=== PATIENT | female | born 1970 | race African-American/Black ===

== ENCOUNTER 2022-10-15 21:55 | Inpatient (IN) ==
[2022-10-15] MEDS ORDERED: ONDANSETRON 4 MG/2 ML VIAL IV STA (23:15)
[2022-10-15 23:21] LABS: Basophils % 0.1 % (0.0-0.8); Eosinophils # 0.4 10*3/uL (0.0-0.87); Eosinophils % 5.6 % (0.00-10.9); Hematocrit 19.4 VOL% (35.7-47.0); Immature Granulocytes % 0.7 %; Immature Granulocytes Absolute 0.05 #; Lymphocytes % 13.6 % (21.3-54.2); Mean Corpuscular HGB Conc 32.5 GM/DL (32-36); Mean Corpuscular Volume 87.8 FL (87-102); Mean Platelet Volume 10.3 FL (9.6-12.0); Monocytes # 0.8 10*3/uL (0.11-0.8); Monocytes % 10.7 % (1.7-12.7); Neutrophils % 69.3 % (38.7-73.9); Platelet Count 133 T/CUMM (130-400); Red Blood Count 2.21 MC/CUMM (3.8-5.5); Red Cell Distribution Width 14.6 % (9.3-17.3); White Blood Count 7.2 T/CUMM (4-12)
[2022-10-15 23:25] LABS: Hemoglobin 6.3 GM/DL (12.0-16.0)
[2022-10-15] MEDS ORDERED: SODIUM CHLORIDE 0.9% 1,000 ML IV PRN (23:26)
[2022-10-15 23:40] LABS: Alanine Aminotransferase 48 U/L (13-56); Albumin 3.1 G/DL (3.4-5.0); Alkaline Phosphatase 78 U/L (45-117); Aspartate Amino Transferase 37 U/L (0-37); Bilirubin,Total < 0.39 MG/DL (0.20-1.00); Blood Urea Nitrogen 139 MG/DL (7-18); Calcium 7.8 MG/DL (8.5-10.1); Carbon Dioxide 16 MMOL/L (21-32); Chloride 111 MMOL/L (98-107); Glucose 133 MG/DL (74-106); Osmolality,Calculated 325.4 MOS/KG (273-304); Potassium 5.7 MMOL/L (3.5-5.1); Sodium 140 MMOL/L (136-145); Total Protein 6.5 G/DL (6.4-8.2)
[2022-10-16 01:48] LABS: Arterial Base Excess iSTAT -9 MMOL/L (-2.5-2.5); Arterial Bicarbonate iSTAT 15.4 MMOL/L (20-26); Arterial O2 Saturation iSTAT 96 % (95-100); Arterial PCO2 iSTAT 27 MM HG (35-48); Arterial PO2 iSTAT 86 MM HG (80-95); Arterial Total CO2 iSTAT 16 MMO/L (23-27); Arterial pH iSTAT 7.365 (7.35-7.45)
[2022-10-16] MEDS ORDERED: ONDANSETRON 4 MG/2 ML VIAL IV PRN (02:15)
[2022-10-16] MEDS ORDERED: ACETAMINOPHEN 325 MG TABLET PO PRN (02:15)
[2022-10-16] MEDS ORDERED: hydrALAZINE 20 MG/1 ML VIAL IV PRN (02:15)
[2022-10-16] MEDS ORDERED: SODIUM POLYSTYRENE SULFATE 15 GM/60 ML BOTTLE PO STA (02:48)
[2022-10-16] MEDS ORDERED: SODIUM ZIRCONIUM CYCLOSILICATE 10 GM PACK PO ONE (02:55)
[2022-10-16] MEDS ORDERED: CLINDAMYCIN INJ 600 MG/50 ML PREMIX IV SCH (03:00)
[2022-10-16] MEDS ORDERED: INSULIN REGULAR 10 UNIT, CALCIUM GLUCONATE 1,000 MG in DEXTROSE 10% 250 ML IV ONE (03:30)
[2022-10-16] MEDS: CLINDAMYCIN INJ 900 MG/50 ML PREMIX IV SCH ×4 (03:39→21:33)
[2022-10-16 04:45] LABS: Basophils % 0.2 % (0.0-0.8); Eosinophils # 0.4 10*3/uL (0.0-0.87); Eosinophils % 4.8 % (0.00-10.9); Hematocrit 23.6 VOL% (35.7-47.0); Immature Granulocytes % 0.8 %; Immature Granulocytes Absolute 0.07 #; Lymphocytes # 1.1 10*3/uL (1.4-4.0); Lymphocytes % 12.4 % (21.3-54.2); Mean Corpuscular HGB Conc 33.9 GM/DL (32-36); Mean Corpuscular Volume 87.4 FL (87-102); Mean Platelet Volume 10.8 FL (9.6-12.0); Monocytes # 0.8 10*3/uL (0.11-0.8); Monocytes % 9.4 % (1.7-12.7); NRBC # 0.02 10*3/uL; Neutrophils % 72.4 % (38.7-73.9); Platelet Count 124 T/CUMM (130-400); Red Cell Distribution Width 14.8 % (9.3-17.3); White Blood Count 8.9 T/CUMM (4-12)
[2022-10-16 05:10] LABS: Albumin 3.1 G/DL (3.4-5.0); Bilirubin,Total 0.4 MG/DL (0.20-1.00); Calcium 8.1 MG/DL (8.5-10.1); Osmolality,Calculated 320.5 MOS/KG (273-304); Potassium 5.9 MMOL/L (3.5-5.1); Total Protein 6.7 G/DL (6.4-8.2)
[2022-10-16 05:21] LABS: Hypochromia Slight; Platelet Estimate Normal
[2022-10-16] MEDS ORDERED: DEXTROSE 50% 25 GM/50 ML SYRINGE IV ONE (06:23)
[2022-10-16] MEDS ORDERED: DEXTROSE 10% 250 ML IV ONE (06:25)
[2022-10-16 07:05] LABS: Alanine Aminotransferase 50 U/L (13-56); Albumin 3.2 G/DL (3.4-5.0); Alkaline Phosphatase 71 U/L (45-117); Aspartate Amino Transferase 40 U/L (0-37); Bilirubin,Total < 0.39 MG/DL (0.20-1.00); Blood Urea Nitrogen 129 MG/DL (7-18); Calcium 7.9 MG/DL (8.5-10.1); Carbon Dioxide 16 MMOL/L (21-32); Chloride 109 MMOL/L (98-107); Glucose 288 MG/DL (74-106); Osmolality,Calculated 331.4 MOS/KG (273-304); Potassium 4.8 MMOL/L (3.5-5.1); Sodium 140 MMOL/L (136-145); Total Protein 6.3 G/DL (6.4-8.2)
[2022-10-16 07:14] LABS: Bacteria,Urine Occasional /HPF (Few); Mucus,Urine Occasional /LPF (Occasional); Squamous Epithelial Cell,Urine Occasional /HPF (0-10)
[2022-10-16 07:19] LABS: Bilirubin,Urine Negative (Negative); Glucose,Urine (UA) 100 mg/dL (Negative); Ketones,Urine Negative (Negative); Nitrite,Urine Negative (Negative); Protein,Urine >=300 mg/dL (Negative); Urine Appearance Clear (Clear); Urine Color Yellow (Yellow); Urine pH 7.5 (4.5-8.0)
[2022-10-16 07:20] LABS: Blood, Urine Moderate mg/dL (Negative); Urine Urobilinogen 0.2 eU/dL (<2.0)
[2022-10-16 10:11] LABS: Hepatitis B Core IgM Quant 0.11 Index; Hepatitis B Surface Ag Quant < 0.10 Index; Hepatitis B Surface Ag Result Non-Reactive (NonReactive); Hepatitis C Virus Ab Quant < 0.02 Index; Hepatitis C Virus Ab Result Non-Reactive (NonReactive)
[2022-10-16] MEDS: CHOLECALCIFEROL 5,000 UNIT TABLET PO SCH (10:38)
[2022-10-16] MEDS: SODIUM BICARBONATE 650 MG TABLET PO SCH ×2 (10:38→21:34)
[2022-10-16] MEDS: ATORVASTATIN 20 MG TABLET PO SCH (10:39)
[2022-10-16] MEDS: amLODIPine 10 MG TABLET PO SCH (10:39)
[2022-10-16] MEDS: carvediloL 3.125 MG TABLET PO SCH ×2 (10:39→21:34)
[2022-10-16] MEDS: PANTOPRAZOLE 40 MG VIAL IV SCH (10:41)
[2022-10-16 11:58] LABS: % Iron Saturation 67.4 % (18-50); Ferritin 77.1 ng/mL (8-252)
[2022-10-16 12:56] LABS: Hematocrit 24.7 VOL% (35.7-47.0); Hemoglobin 8.3 GM/DL (12.0-16.0)
[2022-10-16] MEDS: DEXTROSE 10% 1,000 ML IV SCH (13:30)
[2022-10-16] MEDS: SODIUM ZIRCONIUM CYCLOSILICATE 10 GM PACK PO SCH ×2 (16:10→21:34)
[2022-10-16 18:23] LABS: Hematocrit 22.7 VOL% (35.7-47.0); Hemoglobin 7.7 GM/DL (12.0-16.0)
[2022-10-17 00:48] LABS: Hematocrit 23.3 VOL% (35.7-47.0); Hemoglobin 8.1 GM/DL (12.0-16.0)
[2022-10-17] MEDS: DEXTROSE 10% 1,000 ML IV SCH ×2 (04:40→22:56)
[2022-10-17] MEDS: CLINDAMYCIN INJ 900 MG/50 ML PREMIX IV SCH ×4 (05:31→22:30)
[2022-10-17 05:52] LABS: Basophils % 0.2 % (0.0-0.8); Eosinophils # 0.4 10*3/uL (0.0-0.87); Eosinophils % 4.3 % (0.00-10.9); Hematocrit 21.8 VOL% (35.7-47.0); Hemoglobin 7.4 GM/DL (12.0-16.0); Immature Granulocytes % 0.9 %; Immature Granulocytes Absolute 0.08 #; Lymphocytes % 10.4 % (21.3-54.2); Mean Corpuscular HGB Conc 33.9 GM/DL (32-36); Mean Corpuscular Volume 86.5 FL (87-102); Mean Platelet Volume 10.1 FL (9.6-12.0); Monocytes # 0.9 10*3/uL (0.11-0.8); Monocytes % 9.9 % (1.7-12.7); Neutrophils % 74.3 % (38.7-73.9); Platelet Count 118 T/CUMM (130-400); Red Blood Count 2.52 MC/CUMM (3.8-5.5); Red Cell Distribution Width 14.6 % (9.3-17.3); White Blood Count 9.1 T/CUMM (4-12)
[2022-10-17 06:18] LABS: Alanine Aminotransferase 50 U/L (13-56); Albumin 3.1 G/DL (3.4-5.0); Alkaline Phosphatase 69 U/L (45-117); Aspartate Amino Transferase 32 U/L (0-37); Bilirubin,Total < 0.39 MG/DL (0.20-1.00); Blood Urea Nitrogen 135 MG/DL (7-18); Calcium 7.6 MG/DL (8.5-10.1); Carbon Dioxide 15 MMOL/L (21-32); Chloride 108 MMOL/L (98-107); Glucose 82 MG/DL (74-106); Osmolality,Calculated 317.7 MOS/KG (273-304); Sodium 138 MMOL/L (136-145); Total Protein 6.5 G/DL (6.4-8.2)
[2022-10-17 06:21] LABS: Potassium 6.1 MMOL/L (3.5-5.1)
[2022-10-17] MEDS ORDERED: INSULIN REGULAR 10 UNIT, CALCIUM GLUCONATE 1,000 MG in DEXTROSE 10% 250 ML IV ONE (06:24)
[2022-10-17 06:59] LABS: Hematocrit 22.1 VOL% (35.7-47.0); Hemoglobin 7.4 GM/DL (12.0-16.0)
[2022-10-17] MEDS ORDERED: SODIUM BICARBONATE 50 MEQ/50 ML VIAL IV ONE (08:51)
[2022-10-17] MEDS ORDERED: SODIUM POLYSTYRENE SULFATE 15 GM/60 ML BOTTLE PO ONE (08:51)
[2022-10-17] MEDS ORDERED: SODIUM BICARB IV ONE (09:00)
[2022-10-17] MEDS: CHOLECALCIFEROL 5,000 UNIT TABLET PO SCH (09:30)
[2022-10-17] MEDS: ASPIRIN EC 81 MG TABLET PO SCH (09:30)
[2022-10-17] MEDS: ATORVASTATIN 20 MG TABLET PO SCH (09:30)
[2022-10-17] MEDS: amLODIPine 10 MG TABLET PO SCH (09:48)
[2022-10-17] MEDS: SODIUM BICARBONATE 650 MG TABLET PO SCH ×2 (09:48→20:20)
[2022-10-17] MEDS: carvediloL 3.125 MG TABLET PO SCH ×2 (09:49→20:20)
[2022-10-17] MEDS: PANTOPRAZOLE 40 MG VIAL IV SCH (09:55)
[2022-10-17] MEDS ORDERED: LIDOCAINE 1%/EPI INJ 20 ML VIAL ONE (10:51)
[2022-10-17] MEDS ORDERED: BUPIVACAINE MPF 0.25% 10 ML VIAL ONE (10:51)
[2022-10-17] MEDS ORDERED: TISSUE ADHESIVE 1 EACH APPLICATOR TOP ONE (10:51)
[2022-10-17] MEDS ORDERED: HEPARIN 5,000 UNIT/1 ML VIAL ONE (10:57)
[2022-10-17 11:21] LABS: Calcium 7.7 MG/DL (8.5-10.1); Osmolality,Calculated 318.5 MOS/KG (273-304); Potassium 5.3 MMOL/L (3.5-5.1)
[2022-10-17] MEDS ORDERED: DEXTROSE 50% 25 GM/50 ML SYRINGE IV ONE (11:25)
[2022-10-17] MEDS ORDERED: SODIUM CHLORIDE 0.9% 250 ML IV SCH (11:30)
[2022-10-17] MEDS ORDERED: SODIUM CHLORIDE 0.9% 100 ML IV ONE (11:33)
[2022-10-17] MEDS ORDERED: MIDAZOLAM 2 MG/2 ML VIAL ONE (11:33)
[2022-10-17] MEDS ORDERED: propofoL 200 MG/20 ML VIAL IV ONE (11:33)
[2022-10-17] MEDS ORDERED: LIDOCAINE 2% 5 ML VIAL ONE (11:33)
[2022-10-17] MEDS ORDERED: fentaNYL 100 MCG/2 ML VIAL ONE (11:33)
[2022-10-17] MEDS ORDERED: ceFAZolin 1,000 MG VIAL ONE (11:50)
[2022-10-17] MEDS ORDERED: HEPARIN 10,000 UNIT/10 ML VIAL IV SCH (14:30)
[2022-10-17 14:50] LABS: Calcium 8.1 MG/DL (8.5-10.1); Osmolality,Calculated 304.1 MOS/KG (273-304)
[2022-10-18] MEDS: CLINDAMYCIN INJ 900 MG/50 ML PREMIX IV SCH ×3 (05:30→20:18)
[2022-10-18 05:33] LABS: Basophils % 0.2 % (0.0-0.8); Eosinophils # 0.4 10*3/uL (0.0-0.87); Eosinophils % 3.3 % (0.00-10.9); Hematocrit 24.2 VOL% (35.7-47.0); Hemoglobin 8.3 GM/DL (12.0-16.0); Immature Granulocytes % 0.5 %; Immature Granulocytes Absolute 0.06 #; Lymphocytes # 0.9 10*3/uL (1.4-4.0); Lymphocytes % 7.8 % (21.3-54.2); Mean Corpuscular HGB Conc 34.3 GM/DL (32-36); Mean Corpuscular Volume 85.5 FL (87-102); Mean Platelet Volume 10.1 FL (9.6-12.0); Monocytes # 1.4 10*3/uL (0.11-0.8); Monocytes % 12.4 % (1.7-12.7); Neutrophils % 75.8 % (38.7-73.9); Platelet Count 134 T/CUMM (130-400); Red Blood Count 2.83 MC/CUMM (3.8-5.5); Red Cell Distribution Width 14.5 % (9.3-17.3); White Blood Count 11.1 T/CUMM (4-12)
[2022-10-18 05:57] LABS: Calcium 7.9 MG/DL (8.5-10.1); Osmolality,Calculated 304.1 MOS/KG (273-304); Potassium 4.4 MMOL/L (3.5-5.1)
[2022-10-18] MEDS: SODIUM BICARBONATE 650 MG TABLET PO SCH ×2 (08:25→20:18)
[2022-10-18] MEDS: carvediloL 3.125 MG TABLET PO SCH ×2 (08:25→20:18)
[2022-10-18] MEDS: PANTOPRAZOLE 40 MG VIAL IV SCH (08:48)
[2022-10-18] MEDS: ATORVASTATIN 20 MG TABLET PO SCH (18:38)
[2022-10-18] MEDS: amLODIPine 10 MG TABLET PO SCH (18:38)
[2022-10-18] MEDS: ASPIRIN EC 81 MG TABLET PO SCH (18:39)
[2022-10-18] MEDS: CHOLECALCIFEROL 5,000 UNIT TABLET PO SCH (18:39)
[2022-10-18] MEDS: DEXTROSE 10% 1,000 ML IV SCH (21:59)
[2022-10-19] MEDS: CLINDAMYCIN INJ 900 MG/50 ML PREMIX IV SCH ×4 (02:25→20:00)
[2022-10-19 05:46] LABS: Basophils % 0.1 % (0.0-0.8); Eosinophils # 0.3 10*3/uL (0.0-0.87); Eosinophils % 3.8 % (0.00-10.9); Hematocrit 21.5 VOL% (35.7-47.0); Hemoglobin 7.2 GM/DL (12.0-16.0); Immature Granulocytes % 0.8 %; Immature Granulocytes Absolute 0.06 #; Lymphocytes # 1.5 10*3/uL (1.4-4.0); Lymphocytes % 18.7 % (21.3-54.2); Mean Corpuscular HGB Conc 33.5 GM/DL (32-36); Mean Corpuscular Volume 86.3 FL (87-102); Mean Platelet Volume 9.8 FL (9.6-12.0); Monocytes # 1.1 10*3/uL (0.11-0.8); Monocytes % 14.1 % (1.7-12.7); Neutrophils % 62.5 % (38.7-73.9); Platelet Count 130 T/CUMM (130-400); Red Blood Count 2.49 MC/CUMM (3.8-5.5); Red Cell Distribution Width 14.3 % (9.3-17.3); White Blood Count 7.9 T/CUMM (4-12)
[2022-10-19 06:12] LABS: Calcium 7.9 MG/DL (8.5-10.1); Osmolality,Calculated 284.4 MOS/KG (273-304); Potassium 4.4 MMOL/L (3.5-5.1)
[2022-10-19] MEDS ORDERED: SODIUM CHLORIDE 0.9% 1,000 ML IV PRN (09:02)
[2022-10-19] MEDS: CHOLECALCIFEROL 5,000 UNIT TABLET PO SCH (11:22)
[2022-10-19] MEDS: ATORVASTATIN 20 MG TABLET PO SCH (11:22)
[2022-10-19] MEDS: carvediloL 3.125 MG TABLET PO SCH ×2 (11:22→20:00)
[2022-10-19] MEDS: ASPIRIN EC 81 MG TABLET PO SCH (11:22)
[2022-10-19] MEDS: SODIUM BICARBONATE 650 MG TABLET PO SCH ×2 (11:22→20:00)
[2022-10-19] MEDS: amLODIPine 10 MG TABLET PO SCH (11:22)
[2022-10-19] MEDS: PANTOPRAZOLE 40 MG VIAL IV SCH (13:59)
[2022-10-19] MEDS: DEXTROSE 10% 1,000 ML IV SCH (17:27)
[2022-10-20] MEDS: CLINDAMYCIN INJ 900 MG/50 ML PREMIX IV SCH ×2 (01:30→09:01)
[2022-10-20 05:13] LABS: Basophils % 0.4 % (0.0-0.8); Eosinophils # 0.4 10*3/uL (0.0-0.87); Eosinophils % 3.8 % (0.00-10.9); Hematocrit 29.9 VOL% (35.7-47.0); Immature Granulocytes % 0.6 %; Immature Granulocytes Absolute 0.06 #; Lymphocytes # 1.2 10*3/uL (1.4-4.0); Mean Corpuscular HGB Conc 33.4 GM/DL (32-36); Mean Corpuscular Volume 87.7 FL (87-102); Mean Platelet Volume 10.6 FL (9.6-12.0); Monocytes # 1.2 10*3/uL (0.11-0.8); Monocytes % 12.4 % (1.7-12.7); Neutrophils % 70.8 % (38.7-73.9); Platelet Count 166 T/CUMM (130-400); Red Blood Count 3.41 MC/CUMM (3.8-5.5); Red Cell Distribution Width 13.8 % (9.3-17.3); White Blood Count 9.9 T/CUMM (4-12)
[2022-10-20 05:41] LABS: Calcium 8.7 MG/DL (8.5-10.1); Osmolality,Calculated 284.4 MOS/KG (273-304); Potassium 4.8 MMOL/L (3.5-5.1)
[2022-10-20] MEDS: CHOLECALCIFEROL 5,000 UNIT TABLET PO SCH (08:49)
[2022-10-20] MEDS: amLODIPine 10 MG TABLET PO SCH (08:49)
[2022-10-20] MEDS: ATORVASTATIN 20 MG TABLET PO SCH (08:49)
[2022-10-20] MEDS: ASPIRIN EC 81 MG TABLET PO SCH (08:49)
[2022-10-20] MEDS: PANTOPRAZOLE 40 MG VIAL IV SCH (08:49)
[2022-10-20] MEDS: carvediloL 3.125 MG TABLET PO SCH (08:49)
[2022-10-20] MEDS: SODIUM BICARBONATE 650 MG TABLET PO SCH ×2 (08:49→08:58)
[2022-10-20 12:35] VITALS: BP 149/79
[2022-10-20] MEDS: DEXTROSE 10% 1,000 ML IV SCH (12:47)
== END 2022-10-20 12:46 | disposition home health service (06) | DRG 674 ==
LOC: N.ED 21:55 → SUATTDRO 10-16 02:15 → N.EDINP 10-16 02:15 → N.TELEN 10-16 09:54
PROVIDERS: ADMIT Internal Medicine Geriatric Medicine; ATTEND Internal Medicine